=== PATIENT | female | born 1980 | race Caucasian/White ===

== ENCOUNTER 2016-09-10 12:32 | Emergency (ER) | payer OTHER ==
[~2016-09-10] VITALS: Ht 167.6 cm; Wt 123.4 kg
[~2016-09-10 12:32] MED LIST: BACTRIM DS TAB1 EACH PO; CELEXA40 MG PO; PYRIDIUM200 MG PO; SYNTHROID112 MCG PO
[2016-09-10] MEDS ORDERED: LISINOPRIL10 MG PO (12:40)
[2016-09-10] MEDS ORDERED: ATORVASTATIN CA20 MG PO (12:41)
[2016-09-10 14:14] VITALS: BP 102/69
== END 2016-09-10 14:16 | disposition home or self-care (01) ==
LOC: ER 12:32
DX: M79.661 Pain in right lower leg (principal); Z90.89 Acquired absence of other organs; Z88.8 Allergy status to other drugs, medicaments and biological substances

== ENCOUNTER 2016-10-11 03:46 | Emergency (ER) | payer OTHER ==
[~2016-10-11] VITALS: Ht 167.6 cm; Wt 121.6 kg
[~2016-10-11 03:46] MED LIST changes: +ATORVASTATIN CA20 MG PO; +LISINOPRIL10 MG PO
[2016-10-11 04:26] LABS: URINE BILIRUBIN NEGATIVE (Negative); URINE BLOOD NEGATIVE (Negative); URINE COLOR YELLOW; URINE GLUCOSE-RANDOM* NEGATIVE (Negative); URINE KETONES NEGATIVE (Negative); URINE LEUKOCYTES-REFLEX NEGATIVE (Negative); URINE PROTEIN (DIPSTICK) NEGATIVE (Negative); URINE SPECIFIC GRAVITY >= 1.030 (1.003-1.035); URINE UROBILINOGEN 0.2 E.U./dl (0.2-1.0)
[2016-10-11 05:02] LABS: ABSOLUTE NEUTROPHILS 4.4 thou/uL (1.4-8.2); BASOPHILS 0.5 % (0.0-2.0); EOSINOPHILS 0.8 % (0.0-3.0); HEMATOCRIT 36.4 % (37.0-47.0); HEMOGLOBIN 12.2 gm/dL (12.0-15.0); LYMPHOCYTES 24.7 % (24.0-44.0); MCH 26.4 pg (26.0-34.0); MCHC 33.6 g/dL (28.0-37.0); MCV 78.5 fL (80.0-100.0); MONOCYTES 7.3 % (1.0-8.0); PLATELET COUNT 205 thou/uL (150-400); POLYS 66.7 % (36.0-66.0); RBC 4.63 mil/uL (4.20-5.00); RDW 15.2 % (10.5-14.5); WBC 6.6 thou/uL (4.0-11.0)
[2016-10-11 05:03] LABS: MANUAL DIFF NO
[2016-10-11 05:12] LABS: ANION GAP 7 mmol/L (7-16); BUN 11 mg/dL (7-18); CHLORIDE 103 mmol/L (98-107); CO2 31 mmol/L (21-32); CREATININE 1.1 mg/dL (0.6-1.0); GLUCOSE 109 mg/dL (74-106); POTASSIUM 4.4 mmol/L (3.5-5.1); SODIUM 141 mmol/L (136-145)
[2016-10-11 05:17] LABS: ALBUMIN 3.4 g/dL (3.4-5.0); ALKALINE PHOSPHATASE 77 U/L (46-116); DIRECT BILIRUBIN < 0.1 mg/dL (<0.1-0.3); SGOT 15 U/L (15-37); SGPT 22 U/L (30-65); TOTAL BILIRUBIN 0.4 mg/dL (<0.1-1.0); TOTAL PROTEIN 6.8 g/dL (6.4-8.2)
[2016-10-11] MEDS ORDERED: NORCO 5-325 TA1 EACH PO (05:32)
[2016-10-11 05:44] VITALS: BP 116/68
[2016-10-12] MEDS ORDERED: FLAGYL500 MG PO (09:19)
[2016-10-12] MEDS ORDERED: TRAMADOL 50 MG50 MG PO (09:19)
[2016-10-12] MEDS ORDERED: CIPROFLOXACIN500 M1 PO (09:19)
== END 2016-10-11 05:34 | disposition home or self-care (01) ==
LOC: ER 03:46
PROVIDERS: Emergency Medicine
DX: R10.12 Left upper quadrant pain (principal); N80.9 Endometriosis, unspecified; F17.210 Nicotine dependence, cigarettes, uncomplicated; Z88.8 Allergy status to other drugs, medicaments and biological substances

== ENCOUNTER 2016-10-12 07:26 | Emergency (ER) | payer OTHER ==
[~2016-10-12] VITALS: Ht 167.6 cm; Wt 106.6 kg
[~2016-10-12 07:26] MED LIST changes: +NORCO 5-325 TA1 EACH PO
[2016-10-12 07:53] LABS: ABSOLUTE NEUTROPHILS 3.1 thou/uL (1.4-8.2); BASOPHILS 0.5 % (0.0-2.0); EOSINOPHILS 0.9 % (0.0-3.0); HEMOGLOBIN 12.1 gm/dL (12.0-15.0); LYMPHOCYTES 27.5 % (24.0-44.0); MCH 26.4 pg (26.0-34.0); MCHC 33.7 g/dL (28.0-37.0); MCV 78.3 fL (80.0-100.0); MONOCYTES 7.9 % (1.0-8.0); PLATELET COUNT 185 thou/uL (150-400); POLYS 63.2 % (36.0-66.0); WBC 4.9 thou/uL (4.0-11.0)
[2016-10-12 07:57] LABS: MANUAL DIFF NO
[2016-10-12 08:02] LABS: CALCIUM 8.3 mg/dL (8.5-10.1); CREATININE 1.1 mg/dL (0.6-1.0); POTASSIUM 4.1 mmol/L (3.5-5.1)
[2016-10-12 08:05] LABS: URINE BILIRUBIN NEGATIVE (Negative); URINE BLOOD NEGATIVE (Negative); URINE COLOR YELLOW; URINE GLUCOSE-RANDOM* NEGATIVE (Negative); URINE KETONES NEGATIVE (Negative); URINE LEUKOCYTES-REFLEX NEGATIVE (Negative); URINE PROTEIN (DIPSTICK) NEGATIVE (Negative); URINE SPECIFIC GRAVITY 1.025 (1.003-1.035); URINE UROBILINOGEN 0.2 E.U./dl (0.2-1.0)
[2016-10-12 08:06] LABS: ALBUMIN 3.5 g/dL (3.4-5.0); TOTAL BILIRUBIN 0.3 mg/dL (<0.1-1.0); TOTAL PROTEIN 6.9 g/dL (6.4-8.2)
[2016-10-12] MEDS ORDERED: CIPROFLOXACIN500 M1 PO (09:19)
[2016-10-12] MEDS ORDERED: TRAMADOL 50 MG50 MG PO (09:19)
[2016-10-12] MEDS ORDERED: FLAGYL500 MG PO (09:19)
[2016-10-12 09:30] VITALS: BP 113/80
== END 2016-10-12 09:31 | disposition home or self-care (01) ==
LOC: ER 07:26
PROVIDERS: Emergency Medicine
DX: K57.32 Diverticulitis of large intestine without perforation or abscess without bleeding (principal); N80.9 Endometriosis, unspecified; N92.0 Excessive and frequent menstruation with regular cycle; E89.0 Postprocedural hypothyroidism; F17.210 Nicotine dependence, cigarettes, uncomplicated; Z88.8 Allergy status to other drugs, medicaments and biological substances